=== PATIENT | female | born 1985 | race Two or more races ===

== ENCOUNTER 2022-06-26 18:45 | Outpatient (CLI) | payer BC ==
--- NOTE | 2022-06-27 16:41 | Ultrasound Report ---
PROCEDURE: Pelvic w/Transvaginal INDICATIONS: PELVIC PAIN TECHNIQUE: Real-time scanning was performed of the pelvic organs, with image documentation. Additional endovagi nal scanning was necessary due to incomplete visualization of the adnexal and endometrial structures by transabdominal scanning. COMPARISON: None. FINDINGS: Uterus: Uterus is anteverted and normal in size at 7.6 x 4.1 x 4.9 cm. The myometrium is homogeneou s. The endometrium measures 7 mm in combined thickness. No focal uterine mass Ovaries: The right ovary measures 4.8 x 2.2 x 3.9 cm, with a calculated ovarian volume of 21.1 cc. The left ovary measures 4.2 x 1.5 x 2.5 cm, with a calculated ovarian volume of 2.5 cc. The ovaries have a normal sonographic appearance. Less than 12 follicles can be seen in each ovary. No adnexal masses are seen. There is a complex cyst within the right ovary measuring 22 mm. Other: No pathologic free abdominal or pelvic fluid. IMPRESSION: Negative examination. Reviewed by: Alyssa Gilbert MD on 06/27/2022 4:40 PM PDT Approved by: Alyssa Gilbert MD on 06/27/2022 4:40 PM PDT Station ID: [id number]
== END 2022-06-26 18:46 | disposition home or self-care (01) ==
LOC: DI 18:45
PROVIDERS: ATTEND Nurse Practitioner Obstetrics & Gynecology
DX: R10.2 Pelvic and perineal pain (principal); N92.6 Irregular menstruation, unspecified